=== PATIENT | female | born 1990 | race Caucasian/White ===

== ENCOUNTER 2023-01-14 16:58 | Outpatient (CLI) | payer BC, SELFPAY ==
--- NOTE | 2023-01-14 17:00 | CRLHL7_ITS ---
For Patients: As a result of the Cures Act, medical imaging exams and procedure reports are released immediately into your electronic medical record. You may view this report before your referring provider. If you have questions, please contact your health care provider. INDICATION: First trimester scan, establish dates. COMPARISON: None. TECHNIQUE: Real-time branch-scale imaging of the pelvis was performed. FINDINGS: Sonographic imaging demonstrates a single living intrauterine gestation. The embryo demonstrates a regular cardiac rate measuring 185 beats per minute. The embryo`s crown-rump length measurement of 2.5 cm corresponds to a gestational age of 9 weeks 2 days with a sonographic due date of 08/17/2023. There is a normal-appearing yolk sac. There are no gross abnormalities noted within the embryo at this early state of development. The gestational sac has a normal appearance. There is a 2.2 x 0.7 x 0.9 cm perigestational hemorrhage. The amount of fluid within the sac appears appropriate for gestational age. The cervix is closed. The myometrium appears normal. The ovaries are of normal size. Corpus luteal cyst right ovary. There are no suspicious fluid collections noted in the cul-de-sac. IMPRESSION: Single living intrauterine with sonographic gestational age 9 weeks 2 days and sonographic due date of 08/17/2023. Small right-sided subchorionic hemorrhage measuring 2.2 x 0.7 x 0.9 cm. Dictated by Billy Ramirez MD @ 01/15/2023 11:13:04 AM (Electronically Signed)
== END 2023-01-14 16:59 | disposition home or self-care (01) ==
LOC: US 16:59
PROVIDERS: Visit Provider Physician Assistant
DX: Z34.91 Encounter for supervision of normal pregnancy, unspecified, first trimester (principal); O20.9 Hemorrhage in early pregnancy, unspecified; Z3A.09 9 weeks gestation of pregnancy
CPT/HCPCS: 76817; 86703; 86706; 86803; 86850; 86900; 86901; 87086; 87340; 87491; 87591

== ENCOUNTER 2023-01-14 18:04 | Outpatient (CLI) | payer BC, SELFPAY ==
[2023-01-14 21:51] LABS: Chlamydia DNA Amplified* NOT DETECTED (No Detected); GC DNA Amplified* NOT DETECTED (No Detected)
== END 2023-01-14 18:05 | disposition home or self-care (01) ==
PROVIDERS: Visit Provider Physician Assistant
DX: Z34.91 Encounter for supervision of normal pregnancy, unspecified, first trimester (principal); Z3A.09 9 weeks gestation of pregnancy
CPT/HCPCS: 86592; 86703; 86704; 86706; 86762; 86787; 86803; 86850; 86900; 86901; 87086; 87340; 87491; 87591

== ENCOUNTER 2023-04-08 16:52 | Outpatient (CLI) | payer BC, SELFPAY ==
--- NOTE | 2023-04-08 17:00 | CRLHL7_ITS ---
For Patients: As a result of the Century Cures Act, medical imaging exams and procedure reports are released immediately into your electronic medical record. You may view this report before your referring provider. If you have questions, please contact your health care provider. INDICATION: Evaluate anatomy. COMPARISON: 01/14/2023 TECHNIQUE: Real time branch scale imaging of the fetus was performed as well as color Doppler analysis of the umbilical vessels. FINDINGS: Sonographic imaging demonstrates a single living intrauterine gestation. Fetus demonstrates a regular cardiac rate of 161 beats per minute. Fetus has a vertex position. The placenta lies anteriorly without evidence of placenta previa. Edge of the placenta located 9.4 cm from the internal cervical os. Amniotic fluid volume appears normal. Single deepest vertical pocket: 2.7 cm. The cervix is closed and measures 3.4 cm in length. The composite ultrasound gestational age is calculated at 21 weeks 6 days with an estimated sonographic due date of 08/13/2023. The estimated weight is 452 grams which lies at the 90th %. The following biometric measurements were obtained: Biparietal diameter: 5.4 cm/22 weeks 2 days 93rd% Head circumference: 19.9 cm/22 weeks 0 days 87th% Abdominal circumference: 16.0 cm/21 weeks 1 day 51st% Femur length: 3.9 cm/22 weeks 4 days 91st% The HC/AC ratio measures: 1.24 range (1.06-1.23) On anatomic survey, there is a normal appearance of the cerebral ventricles, cavum septi pellucidi, cisterna magna and cerebellum. The nose and lips are normal. Incomplete visualization of the profile and orbital view the cervical, thoracic and lumbar spine are well visualized and appear normal. There is a normal four-chamber heart view and the left and right ventricular outflow tracts appear normal. The diaphragm and stomach appear normal. The kidneys and bladder also appear normal. There is a normal three-vessel cord and cord insertion site. The four extremities appear normal. IMPRESSION: Sonographic gestational age 21 weeks 6 days and sonographic due date 08/13/2023. Sonographic age 1 week ahead of the clinical age. Estimated weight 98th percentile. Abdominal circumference 51st percentile. Incomplete visualization of the facial orbital view and profile. Remainder of the anatomic survey is normal. Short-term follow-up recommended. Dictated by Billy Ramirez MD @ 04/09/2023 9:09:34 AM (Electronically Signed)
== END 2023-04-08 16:53 | disposition home or self-care (01) ==
LOC: US 16:53
PROVIDERS: Visit Provider Obstetrics & Gynecology
DX: Z34.92 Encounter for supervision of normal pregnancy, unspecified, second trimester (principal); Z3A.21 21 weeks gestation of pregnancy
CPT/HCPCS: 76805

== ENCOUNTER 2023-04-24 08:11 | Outpatient (CLI) | payer BC, SELFPAY ==
--- NOTE | 2023-04-24 08:15 | CRLHL7_ITS ---
For Patients: As a result of the Century Cures Act, medical imaging exams and procedure reports are released immediately into your electronic medical record. You may view this report before your referring provider. If you have questions, please contact your health care provider. INDICATION: missing face/profile and placental cord insertion. COMPARISON: none TECHNIQUE: Real time branch scale imaging of the fetus was performed. FINDINGS: Sonographic imaging demonstrates a single living intrauterine gestation. Fetus demonstrates a regular cardiac rate of 161 beats per minute. Fetus has a vertex position. The placenta lies anteriorly. Amniotic fluid volume appears normal. Single deepest vertical pocket: 5.8 cm. Normal profile and 4 chamber heart. Normal cord insertion into the placenta. IMPRESSION: Normal face and profile. Normal placental cord insertion. Dictated by Billy Ramirez MD @ 04/24/2023 9:17:21 AM (Electronically Signed)
== END 2023-04-24 08:12 | disposition home or self-care (01) ==
LOC: US 08:12
PROVIDERS: Visit Provider Physician Assistant
DX: O35.AXX0 Maternal care for other (suspected) fetal abnormality and damage, fetal facial anomalies, not applicable or unspecified (principal)
CPT/HCPCS: 76816

== ENCOUNTER 2023-05-29 11:17 | Outpatient (CLI) | payer BC, SELFPAY | END 2023-05-29 11:18 | disposition home or self-care (01) | LOC: NFLDREF 11:18 | PROVIDERS: Visit Provider Obstetrics & Gynecology | DX: O26.899 Other specified pregnancy related conditions, unspecified trimester (principal); Z67.91 Unspecified blood type, Rh negative | CPT/HCPCS: 86592; 86850; J2791 ==

== ENCOUNTER 2023-07-22 09:38 | Outpatient (CLI) | payer BC, SELFPAY ==
[2023-07-23 10:32] LABS: Strep B DNA Probe POSITIVE (Negative)
[2023-07-23 11:14] LABS: Strep B Susceptibility Needed? No
== END 2023-07-22 09:39 | disposition home or self-care (01) ==
LOC: NFLDREF 09:38
PROVIDERS: Visit Provider Obstetrics & Gynecology
DX: Z34.93 Encounter for supervision of normal pregnancy, unspecified, third trimester (principal)
CPT/HCPCS: 87081; 87653

== ENCOUNTER 2023-08-07 10:26 | Outpatient (CLI) | payer BC, SELFPAY ==
--- NOTE | 2023-08-07 10:30 | US_ITS ---
Patient: MONET PARRA Facility:?[facility] Patient ID:?[id number] Site Patient ID:?[id number] Site :?1990 Study:?US-OB Pelvis OB BPP-08/07/2023 11:10:42 AM Ordering Physician:?GEMMA NG M.D. Final Report: INDICATION: Decreased movement COMPARISON: 04/24/2023 TECHNIQUE: Real time branch scale imaging of the fetus was performed. Without non-stress testing. FINDINGS: Sonographic imaging demonstrates a single living intrauterine gestation. Fetus demonstrates a regular cardiac rate of 155 beats per minute. Fetus has a vertex position. The amniotic fluid volume appears normal and there is a single deepest pocket measurement of 6.7 cm. ADAM 21.3 cm. The fetus was active and demonstrated normal breathing movements. There was normal flexion and extension of the trunk and extremities. IMPRESSION: Normal biophysical profile score of 8 out of 8. Dictated by Billy Ramirez MD @ 08/07/2023 2:51:15 PM Signed by:?Billy Ramirez MD @08/07/2023 2:51:15 PM (Electronic Signature)
== END 2023-08-07 10:27 | disposition home or self-care (01) ==
LOC: US 10:30
PROVIDERS: Visit Provider Obstetrics & Gynecology
DX: O36.8190 Decreased fetal movements, unspecified trimester, not applicable or unspecified (principal)
CPT/HCPCS: 76819

== ENCOUNTER 2023-08-14 09:45 | Inpatient (IN) | payer BC, SELFPAY ==
[2023-08-14] VITALS (18 sets, daily range): BP systolic 109–154; BP diastolic 61–78; PULSE 62–91; RESP 16–18; TEMP 36.4–36.8; O2SAT 94–100; BMI 33.7
[2023-08-14] MEDS: AMPICILLIN 2 GM in 0.9 % SODIUM CHLORIDE Mini-bag 100 ML IVPB (10:46)
[2023-08-14] MEDS: LACTATED RINGERS 1000 ML 1,000 ML 125 ML IV ×2 (10:48→19:48)
[2023-08-14 10:49] LABS: Basophils Absolute Auto 0.02 K/uL (0.00-0.30); Basophils Percent Auto 0.3 % (0.0-3.0); Eosinophils Absolute Auto 0.04 K/uL (0.00-0.50); Eosinophils Percent Auto 0.6 % (0.0-7.0); Hematocrit 33.4 % (33.0-51.0); Hemoglobin* 11.3 gm/dL (12.0-16.0); Immature Granulocytes Abs Auto 0.02 K/uL (0.00-0.30); Immature Granulocytes Pct Auto 0.3 %; Lymphocytes Percent Auto 15.3 % (20-44); Mean Corpuscular HGB Conc 34 gm/dL (32-36); Mean Corpuscular Hemoglobin 29 pg (26-34); Mean Corpuscular Volume 85 fL (80-100); Monocytes Percent Auto 7.9 % (0.0-11.0); Neutrophils Percent Auto 75.6 % (42.0-72.0); Platelet Count* 174 K/uL (140-440); RDW Coefficient of Variation % 12.1 % (11.5-15.5); Red Blood Count 3.91 m/uL (4.00-5.20); White Blood Count* 7.24 K/uL (4.50-11.00)
[2023-08-14 11:04] LABS: Slide Review Reflex No
--- NOTE | 2023-08-14 11:40 | W.PM.LDBA ---
Subjective History of Present Illness Date Seen: 08/14/23 Narrative: Patient is being admitted to Labor and Delivery for delivery after SROM. She is a 32 year old at 39 1/7 weeks gestation. Her full history and physical was dictated by Dr. LAGOS on 07/31/23. Please see this for details. Patient states that this morning at around 0545 she woke up and had felt a watery like discharge, she placed a pad on and noticed consistent small trickling of fluid. Since she had OB appointment today decided to wait to be evaluated in clinic. In clinic patient was found with positive AmniSure. Specific Issues/Plans MD Figueroa Spouse: Ashutosh. Children: Diony Britt, Cindy Cosby. Baby: [place] H&P by YOLIS on 07/31/2023 # History of severe depression with the 1st -Continue to monitor mood every trimester # RH neg Rhogam: 05/29/23 # GERD: was taking 8 Tums per day. Rx for Famotidine 20mg BID on 03/11. Omeprazole 20 mg daily beginning 06/24/23 # Anemia affecting 05/29/2023 hgb 10.8 Ferrous sulphate 325mg QOD Recheck on 07/08/23: 11.5 Flu shot:01/2023 COVID shot: Tdap: 06/10/23 32 wk PHQ/FRANCIA: 06/26/2023 34 wk Hgb: 11.5 36 wk GBS: Positive Patient gets nauseous with speculum exams. Last pap 2018, NIL. Declined Pap smear at new OB. Pap OB - Problem Based A/P Additional Plan (1) SROM (spontaneous rupture of membranes): Status: Acute Plan GBS positive status and SROM, antibiotics started. Patient has needed Oxytocin in the past for labor augmentation she is dionne regularly but describes them as mildly uncomfortable, after 2 hours of antibiotics we will plan to start low dose Oxytocin. Patient feels comfortable with that plan. She is planning an epidural. Will plan to recheck after Oxytocin is started and patient starts to experience contractions as more painful, if not will allow labor to progress. OB Exam Physical Exam Vital signs: Pulse BP Pulse Ox 81 113/78 99 08/14/23 10:14 08/14/23 10:14 08/14/23 09:55 Detailed Labor and Delivery Exam Patient Gravid: Yes Dilation (cm): 2 Effacement (%): 70 Contraction intensity: Mild Fetus (Single) Station: -2 Amniotic Membrane Status: SROM Amniotic Membrane Fluid Description: Clear Heart Rate Baseline: 130 Monitor Accelerations: Present Monitor Decelerations: None Vocational Counselor Variability: Moderate (6-25)
[2023-08-14] MEDS: OXYTOCIN 30 unit/500 ML in NS 30 UNIT/500 ML BAG IVPB (14:08)
[2023-08-14] MEDS: AMPICILLIN 1 GM in 0.9 % SODIUM CHLORIDE Mini-bag 100 ML IVPB ×2 (15:31→19:38)
[2023-08-14] MEDS: ONDANSETRON 2 MG/ML inj 4 MG IV (23:25)
[2023-08-15] VITALS (20 sets, daily range): BP systolic 108–128; BP diastolic 55–77; PULSE 57–88; RESP 12–18; TEMP 36.4–36.9; O2SAT 96–97
[2023-08-15] MEDS: ACETAMINOPHEN 500 MG TABLET 1000 MG PO ×3 (00:34→20:17)
--- NOTE | 2023-08-15 00:41 | W.PM.OBVAGDE ---
OB Procedure Vag Delivery Mother Details Mother Details: The patient is a 32 year-old, 4, Para 2, admitted on 08/14/23 at 39.1Days gestation for labor augmentation after SROM. GBS positive and IV antibiotics started right away. Uterine contractions upon admission regular but mild and patient stated history of needing Oxytocin for augmentation in the past and low dose Oxytocin was started, she progressed adequately. There was a forebag that ruptured on her own. Unfortunately anesthesia was unavailable when patient had requested epidural and her labor progressed quickly after 6-7cm. Patient was able to manage with Nitrous Oxide. : 4 Para: 2 Weeks Gestation: 39.1 Admission Date: 08/14/23 Additional Details Amniotic Membrane Status: SROM Amniotic Membrane Rupture Date: 08/14/23 Amniotic Membrane Rupture Time: 05:45 Amniotic Membrane Fluid Description: Clear Analgesia/Anesthesia Type: Nitrous Oxide Waterbirth: No Pitcoin: Yes Intrapartal Events: Labor Augmentation and ROM >18 Hours Delivery augmentation: pitocin Labor Onset: 21:08 Complete: 23:45 Pushin:46 Heart: heart tones during second stage were category 2. Delivery Details Delivery Date: 08/14/23 Delivery Time: 23:48 Route of delivery: Gender: Female Viability: Alive; Heart Rate Present Position at Delivery: OA Delivery Details: Delivered over intact perineum via spontaneous vaginal delivery. was placed on maternal abdomen.? Cord was clamped and cut after a 30-60 second delay. Nose and mouth were bulb suctioned.? weight pending. 1 Minute Interval Total Score: 7 5 Minute Interval Total Score: 9 Additional Details Shoulder Dystocia: No Placenta Delivery Time: 23:56 Placental Delivery Description: Spontaneous Blood Loss: 100 Laceration: None Episiotomy Description: None Blood Loss Measurement Type: EBL Bakri Used: No Sponge/Need Count Correct: Yes Cord Vessel Description: Nuchal Cord and Delivered through Event Summary Status: Mother and infant were stable after delivery. Disposition: floor
[2023-08-15] MEDS: IBUPROFEN 600 MG TABLET PO ×2 (02:59→16:13)
--- NOTE | 2023-08-15 09:00 | PM.OBPNVD1 ---
OB - PN:Subj Subjective Date Seen: 08/15/23 Patient comments OB post-: no complaints, pain well controlled, tolerating diet and flatus present [place] status: [place] feeding status: exclusively Narrative: The patient feels well.? Her pain is well controlled with current medications.? She has no new complaints.? Urinary output is adequate and she is voiding without difficulty.? Has a good appetite, is tolerating a general diet, is passing flatus, and has not had a bowel movement.? Has small amount of rubra lochia.? She is ambulating well.?She is and feels it is going ok but working on keeping baby awake longer for feeds. We had a lengthy discussion about her labor. She had planned on getting an epidural but did not get one before delivery. She states that it was 3 hours from when they first talked about an epidural and initiated things to get one and when she delivered. states that she was told multiple times that it would be soon. 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 Discussed talking to a patient advocate to discuss further and help us improve for future. OB - PN: Obj Exam Physical Exam: Vital signs: Temp Pulse Resp BP Pulse Ox O2 Del Method 98.5 F 76 12 117/65 97 Room Air 08/15/23 03:02 08/15/23 03:02 08/15/23 03:02 08/15/23 03:02 08/15/23 03:02 08/15/23 03:02 Narrative: GENERAL APPEARANCE:? normal affect, alert, no distress? MOOD:? appropriate? CHEST:? clear to auscultation and percussion? HEART:? regular rate and rhythm? ABDOMEN:? soft, non-tender the uterine fundus is U/2 and is appropriate for the stage of recovery.? PERINEUM:? mild edema of the perineum, there is a intact perineum that is healing well.? EXTREMITIES:? normal and no edema? OB - PN: Obj Data Labs Labs: Laboratory Results - last 24 hr 08/14/23 10:39 WBC 7.24 RBC 3.91 L Hgb 11.3 L Hct 33.4 MCV 85 MCH 29 MCHC 34 RDW Coeff of Radha 12.1 Plt Count 174 Neut % (Auto) 75.6 H Lymph % (Auto) 15.3 L [place] % (Auto) 7.9 Eos % (Auto) 0.6 Baso % (Auto) 0.3 Neut # (Auto) 5.50 Lymph # (Auto) 1.10 [place] # (Auto) 0.60 Eos # (Auto) 0.04 Baso # (Auto) 0.02 Abs Immat Gran (auto) 0.02 Imm/Tot Granulo (auto) 0.3 Blood Type A Negative Antibody Screen POSITIVE OB - PN: A/P Delivery Assessment and Plan (1) care following vaginal delivery: Status: Acute (2) Lactating mother: Status: Acute Plan day: 1 Plan: routine care Comments: Anticipate discharge home tomorrow
[2023-08-15] MEDS: DOCUSATE SODIUM 100 MG CAPSULE PO (12:21)
[2023-08-15 13:02] LABS: Rapid Plasma Reagin (RPR) Non Reactive (Non Reactive)
[2023-08-15] MEDS: LANOLIN CREAM 1 APPLIC TOPICAL (16:24)
[2023-08-16 00:23] VITALS: BP 104/69; PULSE 60; RESP 18; TEMP 36.6; O2SAT 98
[2023-08-16] MEDS: IBUPROFEN 600 MG TABLET PO (04:11)
[2023-08-16 09:00] VITALS: BP 107/70; PULSE 72; RESP 16; TEMP 36.5; O2SAT 97
[2023-08-16] MEDS: DOCUSATE SODIUM 100 MG CAPSULE PO (09:15)
[2023-08-16] MEDS: ACETAMINOPHEN 500 MG TABLET 1000 MG PO (09:15)
--- NOTE | 2023-08-16 11:26 | P.DS_ITS ---
DS: Providers Provider Date Seen: 08/16/23 Date of admission: 08/14/23 09:45 Primary care physician: Not a Local Provider Admitting Clinician: Monica Serrano MD Attending Physician on discharge: Loly Hamilton MD Date of Discharge: 08/16/23 DS: Diagnosis Discharge Diagnosis (1) care following vaginal delivery: Status: Acute (2) Lactating mother: Status: Acute Exam Const: Vital Signs, click to edit/add: Vital Signs - 24 hr 08/15/23 13:34 08/15/23 16:09 08/15/23 20:10 Temperature 97.5 F L 97.5 F L 97.9 F Pulse Rate [Blood Pressure Cuff] 71 75 69 Respiratory Rate 16 18 18 Blood Pressure [Ri ght Arm] 123/77 112/71 108/73 Pulse Oximetry 96 97 97 Oxygen Delivery Me thod Room Air Room Air Room Air 08/16/23 00:23 08/16/23 09:00 Temperature 97.8 F 97.7 F Pulse Rate [Blood Pressure Cuff] 60 72 Respiratory Rate 18 16 Blood Pressure [Ri ght Arm] 104/69 107/70 Pulse Oximetry 98 97 Oxygen Delivery Me thod Room Air Room Air Documenting provider has reviewed patient's vital signs: yes Common normals: no apparent distress and oriented x3 General appearance: cooperative and comfortable HENMT: Common normals: normocephalic Head and scalp: normocephalic Resp: Common normals: normal respiratory effort Cardio: Common normals: regular rate and regular rhythm Rate: regular rate Rhythm: regular rhythm GI: Common normals: soft to palpation and non-tender Palpation: soft Extremity: Common normals: normal to inspection and no pedal edema Neuro: Common normals: oriented x3 Psych: Common normals: affect normal OB - DS: Summary Hospital Course Hospital Course: The patient is a 32 year old G 4 now P 3013 admitted at 39 1/7 weeks gestation on 08/14/23 for SROM and early labor. She had an uncomplicated vaginal delivery. She was GBS positive, and received group B strep antibiotic prophylaxis. She delivered a viable female . At the time of delivery, membranes had been ruptured for just over 18 hours. She is breast feeding. She has a little anxiety associated with breast-feeding, but has a good support system and plans to switched to formula-feeding if does not work well for her. the patient has done well. Peripartum Data Infant delivery method: Vaginal Laceration description: None complications: none Neal Gender: Female Discharge Plan: Home Status at Discharge Functional status at discharge: independent ambulation Overall status at discharge: patient is back to baseline Time Spent with Patient Time attestation: Total time spent providing and/or coordinating discharge services: Discharge Plan Discharge Disposition: Home, Self-Care Date of Admission: 08/14/23 09:45 Attending Provider on Discharge: Loly Hamilton Primary Care Provider: Provider,Not a Local Condition: Stable Anticipated Discharge Date/Time: 08/16/23 16:00 Discharge Medications: New docusate sodium 100 mg Capsule 100 mg PO DAILY Qty: 30 0RF ibuprofen 600 mg Tablet 600 mg PO Q6H PRNQty: 30 0RF Continued DHA 200 mg capsule 200 mg PO DAILY ferrous sulfate [Feosol] 325 mg (65 mg iron) tablet 325 mg PO Q OTHER DAY omeprazole 20 mg capsule,delayed release(DR/EC) 20 mg PO DAILY Discharge Orders: Discharge Order (Routine); Ordered 08/16/23 Ordered By: Loly Hamilton Patient Education: OB Over the Counter Medication Information, OB Vaginal/Breast Feeding Additional Instructions: Discharge instructions were reviewed with the patient including signs and symptoms of infection and home going medications Nothing vaginally for 6 weeks: no tampons or intercourse Do not drive while taking narcotic pain medication(s) Off Work or School for 8 weeks Symptoms to report to doctor: * Bleeding that saturates more than one pad per hour * Passing clots larger than the size of a golf ball * Pain not relieved by prescribed medication * Fever above 100.4 degrees Fahrenheit * A foul vaginal odor * Difficulty in emotions, mood, and functions * Thoughts of hurting yourself and/or * Painful, reddened area in your breast * Any drainage, redness, or tenderness in your IV/epidural site * Severe headache that doesn't improve after taking medications * Changes in vision, including temporary loss of vision, blurred vision, and/or light sensitivity * Upper abdominal pain (usually under ribs on the right side) * Decrease in urination or painful, frequent urinating * Chest pain * Shortness of breath * Tenderness or pain with redness and/swelling in the calf(s) of your leg Optional 2-week visit: discuss infant feeding concerns, review control options and screen for anxiety/depression. 6-week visit for an annual exam. consultation services are available to all mothers and babies for the first year after delivery.? To make an appointment, please call [phone]. Activity Level: No Restrictions Discharge Diet: Regular Follow Up Appointments: Provider,Not a Local [Primary Care Provider] - Forms: Purveyour Info Instructions DS:Data Additional Comments Additional comments: hemoglobin 10.0
== END 2023-08-16 12:45 | disposition home or self-care (01) | DRG 560 ==
PROVIDERS: Admitting Provider Obstetrics & Gynecology; Visit Provider Obstetrics & Gynecology
DX: O99.824 Streptococcus B carrier state complicating childbirth (principal); O26.893 Other specified pregnancy related conditions, third trimester; Z67.11 Type A blood, Rh negative; K21.9 Gastro-esophageal reflux disease without esophagitis; Z86.59 Personal history of other mental and behavioral disorders; Z3A.39 39 weeks gestation of pregnancy; Z37.0 Single live birth
CPT/HCPCS: 36415; 85018; 85025; 86592; 86850; 86870; 86880; 86900; 86901; 86906; G0463; A9270; J0290; J2371; J2405; J7120

== ENCOUNTER 2023-08-27 13:52 | Outpatient (CLI) | payer BC, SELFPAY ==
--- NOTE | 2023-08-27 17:00 | W.PM.LAC.MC ---
Consult Note - Mom Date of Visit Date of visit: 08/27/23 nursing consultant: Sarah Perdomo Visit Code: Visit Patient's Information Phone number: [phone] : 4 Para: 3 Allergies No Known Drug Allergies Allergy (Verified 08/27/23 12:56) Mother's Medical History: Medical History (Updated 08/27/23 @ 14:28 by Diane Bryan PA-C) History of depression ?Z87.59 - Personal history of other complications of , childbirth and the puerperium (ICD-10) ?Z86.59 - Personal history of other mental and behavioral disorders (ICD-10) Delivery Information Delivery type: Vaginal Weeks Gestation: 39.1 Gestational Age: LGA Weight: 3.94 kg Discharge Weight: 3.763 kg Baby's Information Baby's Age at Visit: 13 days Baby's Provider or Clinic: Dr. Naqvi Jaundice: No Reason for Consult Reason for Consult: concern for transfer, reflux, tongue tie Past Experience Past Experience: Yes (nursed her two older children about 1 year each) Current Frequency of Day Feedings: every 2 - 3 hours around the clock Both Breasts: Yes Suck: fairly strong Latch: fairly wide Length of Time: about 10 minutes total Pumping Pumping: No Supplementing EMB Supplement: No Formula Supplement: No Baby Elimination Number of Wet Diapers a Day: every feeding Number of BM a Day: almost every feeding, yellow and seedy Breast/Nipple Condition Breast Information: WNL Engorgement: No Maternal Nipple Condition - Left: Common Nipple Maternal Nipple Condition - Right: Common Nipple Onsite Pre-Feed weight: 4.214 kg Post-Feed weight: 4.228 kg Milk Transferred (mL): 104 Assessments/Interventions Assessments/Interventions: Met with mom and this now 13 day old ex- term LGA baby for consult. Mom is concerned b/c baby is very noisy and gassy after nursing. She also reports baby is gulping and unlatching while feeding and seems uncomfortable. She's worried baby may have a lip and/or tongue tie and possibly reflux as well. Mom is waking baby to nurse about every 2 hours during the day and every 3 hours overnight. She offers both sides and states nursing sessions only last about 10 minutes total. She hasn't started pumping or offering EBM but is interested in possibly having dad offer a bottle once overnight so she can get a longer stretch of uninterrupted sleep. Breasts WNL- symmetrical with rounded lower quadrants, intramammary distance < 1.5 inches. Nipples are everted and don't flatten or retract on compression, no damage noted. Baby has gained 34 grams/day since her last visit on 08/17 and she's now 184 grams (6 oz) above BW at 13 DOL. Mom denies any caput/cephalohematoma at delivery. States she favors turning her head to the right but has equal ROM when moving her extremities. Baby has seen the chiropractor a few times and mom has stretches for her. Her palate is WNL. Her upper frenulum is a little tight. She has a strong suck on a finger and the tongue easily extends past the gum line when sucking on a finger. The tongue also has good lateral movement. The lower frenulum appears to be WNL. Mom latched baby to the right side and baby started gulping almost immediately. She had a wide latch and mom was comfortable. It wasn't until about 5 minutes into the session that she sputtered and came off the breast with milk leaking out of her mouth. Mom burped her and offered that side again. Baby nursed another 5 - 10 minutes before coming off on her own. Mom wanted to try the reclined position on the left side and after a few attempts she was able to latch baby but baby wasn't aggressive on this side and didn't really nutritively suckle. After a 5 - 10 minute attempt to encourage her to suckle, she was weighed and had transferred 104 ml (3.5 oz). We discussed the difference between symptoms of a fast flow vs. reflux and baby exhibited more signs of having trouble with mom's flow. Ideas to help with this were suggested, in addition to the reclined nursing position. Also reviewed baby really has no signs of a tongue or lip tie but mom is still planning on seeing a pediatric dentist in September for her peace of mind. Also reviewed it's very common for babies this age to be gassy and this can make them uncomfortable. Mom is going to try gas drops. Plan: 1. Continue to nurse baby ALD. Suggested she stop waking baby and that she could go up to 3 hours during the day and 4 hours overnight. Offer both sides and use the ideas to help with her fast flow; this will improve as her body regulates and baby grows. Reassured mom baby is efficient at the breast so shorter feedings for her are WNL. 2. No medical need to supplement but if mom would like a longer stretch of sleep, suggested dad offer a bottle for her first night feeding. Paced feeding was reviewed. 3. Pump to empty once/day or every few days and dad can use that milk to supplement. 4. F/U with PCP for a 2 month C and encouraged mom to consider Baby Talk. Handout given. Meds Home Medications and Allergies Home Medications ?Medication ?Instructions ?Recorded ?Confirmed ?Type docosahexaenoic acid 200 mg 200 mg PO DAILY 01/14/23 08/14/23 History capsule ( DHA) Allergies Allergy/AdvReac Type Severity Reaction Status Date / Time No Known Drug Allergies Allergy Verified 08/27/23 12:56
== END 2023-08-27 13:53 | disposition home or self-care (01) ==
PROVIDERS: Visit Provider Physician Assistant
DX: Z39.1 Encounter for care and examination of lactating mother (principal)
CPT/HCPCS: G0463

== ENCOUNTER 2025-03-23 13:51 | Outpatient (CLI) | payer BC, SELFPAY | END 2025-03-23 13:52 | disposition home or self-care (01) | PROVIDERS: Visit Provider Registered Nurse | DX: R53.83 Other fatigue (principal); Z13.9 Encounter for screening, unspecified | CPT/HCPCS: 80061; 82306; 84443 ==